=== PATIENT | female | born 1950 | race Caucasian/White ===

== ENCOUNTER → 2017-06-18 | Outpatient (CLI) | payer MEDICARE, BC | LOC: MC.RAD 09:20 | DX: Z12.31 Encounter for screening mammogram for malignant neoplasm of breast (principal); N63 Unspecified lump in breast ==

== ENCOUNTER → 2019-06-30 | Outpatient (CLI) | payer MEDICARE, BC | LOC: MC.RAD 09:05 | DX: Z12.31 Encounter for screening mammogram for malignant neoplasm of breast (principal) ==

== ENCOUNTER → 2023-10-08 | Outpatient (RCR) | payer MEDICARE | END | disposition home or self-care (01) | LOC: PT.GENESIS | DX: M43.9 Deforming dorsopathy, unspecified (principal); M25.561 Pain in right knee ==

== ENCOUNTER 2023-10-29 11:30 | Outpatient (RCR) | payer MEDICARE | END 2023-11-08 | disposition home or self-care (01) | LOC: PT.GENESIS | DX: M41.86 Other forms of scoliosis, lumbar region (principal); M41.84 Other forms of scoliosis, thoracic region; M25.561 Pain in right knee ==

== ENCOUNTER 2023-11-13 10:02 | Outpatient (RCR) | payer MEDICARE | END 2023-12-09 | disposition home or self-care (01) | LOC: PT.GENESIS | DX: M43.9 Deforming dorsopathy, unspecified (principal); M25.561 Pain in right knee ==

== ENCOUNTER → 2024-03-03 | Outpatient (CLI) | payer MEDICARE | LOC: MC.RAD 11:33 | DX: Z12.31 Encounter for screening mammogram for malignant neoplasm of breast (principal) ==